=== PATIENT | female | born 1965 | race African-American/Black ===

== ENCOUNTER 2016-05-31 13:04 | Inpatient (IN) | payer BC ==
[2016-05-31 13:31] VITALS: BMI 28.1
[2016-05-31] MEDS ORDERED: LOPERAMIDE HCL 2 MG CAPSULE PO PRN (14:29)
[2016-05-31] MEDS ORDERED: IBUPROFEN 400 MG TABLET (FP) PO PRN (14:29)
[2016-05-31] MEDS ORDERED: MAGNESIUM CITRATE 300 ML BOTTLE PO PRN (14:29)
[2016-05-31] MEDS ORDERED: MAGNESIUM HYDROX 2400MG/30ML ORAL SUSPENSION 30 ML CUP PO PRN (14:29)
--- NOTE | 2016-05-31 14:29 | HP ---
[facility] Assess/Revision - Admission History Admitted to Rehab from: [facility] [place] - Vital signs Vital Signs: Vital Signs Period Temp Pulse Resp BP Sys/Galarza Pulse Ox Last 24 Hr 97.2 F 90 20 143/82 - Findings Detox History & Physical reviewed: Yes Concur with findings: Yes
[2016-05-31] MEDS ORDERED: ALBUTEROL SO4 6.7 GM HFA INHALER IH PRN (14:37)
[2016-05-31] MEDS: GABAPENTIN 400 MG CAPSULE (FP) PO SCH ×2 (17:05→21:40)
[2016-05-31] MEDS: guaiFENesin/D-METHORPHAN HB 10 ML UNIT-DOSE CUPS PO PRN (17:36)
[2016-05-31] MEDS: P-EPHED 60MG/TRIPROLIDI 2.5MG TABLET PO PRN (17:36)
[2016-05-31] MEDS: MENTHOL/PHENOL 1 EACH UD MM PRN (17:36)
[2016-05-31 20:16] LABS: URINE APPEARANCE CLEAR; URINE BLOOD NEGATIVE (NEGATIVE); URINE COLOR YELLOW; URINE GLUCOSE (UA) NEGATIVE (NEGATIVE); URINE KETONE NEGATIVE (NEGATIVE); URINE LEUK ESTERASE NEGATIVE (NEGATIVE); URINE NITRITE NEGATIVE (NEGATIVE); URINE PROTEIN NEGATIVE (NEGATIVE); URINE UROBILINOGEN NEGATIVE E.U./dl (0.2-1.0)
[2016-05-31] MEDS: THIAMINE HCL 100 MG TABLET (FP) PO SCH (21:40)
[2016-05-31] MEDS: NAPROXEN 500 MG TABLET (FP) PO SCH (21:40)
[2016-06-01] MEDS: GABAPENTIN 400 MG CAPSULE (FP) PO SCH ×3 (06:26→21:24)
[2016-06-01] MEDS: MENTHOL/PHENOL 1 EACH UD MM PRN (06:28)
[2016-06-01] MEDS: P-EPHED 60MG/TRIPROLIDI 2.5MG TABLET PO PRN (06:28)
[2016-06-01] MEDS: guaiFENesin/D-METHORPHAN HB 10 ML UNIT-DOSE CUPS PO PRN (06:28)
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
[2016-06-01] MEDS: PRENATAL VITAMINS W/ FOLIC ACID TABLET (FP) PO SCH (10:13)
[2016-06-01] MEDS: NAPROXEN 500 MG TABLET (FP) PO SCH ×2 (10:13→21:24)
[2016-06-01] MEDS: ASPIRIN 81 MG CHEWABLE TABLETS PO SCH (10:13)
[2016-06-01 10:56] LABS: HIV 1 & 2 AB NEGATIVE; HIV 1 AGp24 NEGATIVE
--- NOTE | 2016-06-01 12:39 | PN ---
[facility] Progress Note Note: ambulate with cane at home secondary to scoliosis order placed.
[2016-06-01] MEDS: DULoxetine HCL 30 MG CAPSULE.DR (FP) PO SCH (14:38)
[2016-06-01] MEDS: THIAMINE HCL 100 MG TABLET (FP) PO SCH (21:24)
[2016-06-01] MEDS: QUEtiapine FUMARATE 200 MG TABLET PO SCH (23:32)
[2016-06-02] MEDS: hydrOXYzine PAMOATE 50 MG CAPSULE (FP) PO PRN (03:07)
[2016-06-02] MEDS: GABAPENTIN 400 MG CAPSULE (FP) PO SCH ×3 (05:53→21:33)
[2016-06-02] MEDS: MAG HYDROX/AL HYDROX/SIMETH 30 ML UNIT-DOSE CUP PO PRN (05:53)
[2016-06-02] MEDS: guaiFENesin/D-METHORPHAN HB 10 ML UNIT-DOSE CUPS PO PRN (05:54)
[2016-06-02] MEDS: PRENATAL VITAMINS W/ FOLIC ACID TABLET (FP) PO SCH (10:08)
[2016-06-02] MEDS: DULoxetine HCL 30 MG CAPSULE.DR (FP) PO SCH (10:08)
[2016-06-02] MEDS: NAPROXEN 500 MG TABLET (FP) PO SCH ×2 (10:08→21:33)
[2016-06-02] MEDS: ASPIRIN 81 MG CHEWABLE TABLETS PO SCH (10:08)
--- NOTE | 2016-06-02 10:33 | EKG ---
Test Reason : Blood Pressure : / mmHG Vent. Rate : 090 BPM Atrial Rate : 090 BPM P-R Int : 162 ms QRS Dur : 066 ms QT Int : 370 ms P-R-T Axes : 062 022 036 degrees QTc Int : 452 ms NORMAL SINUS RHYTHM ANTERIOR INFARCT , AGE UNDETERMINED ABNORMAL ECG NO PREVIOUS ECGS AVAILABLE Confirmed by BETTINA CHAMPION, RODRIGUEZ ([id number]) on 06/02/2016 10:33:44 AM Referred By: Confirmed By:RODRIGUEZ DUNBAR MD
--- NOTE | 2016-06-02 19:00 | PN ---
[facility] Progress Note Note: patient reach out for object while sitting on the chair,fell and laded on right hip and back, no head injury no loc no obvious injury noted history of scoliosis and chronic low back pain ambulate with cane impression history of fall bp 131/79,p82,r20,t98F patient refused treatment and evaluation in er,signed refusal form, initiate fall protocol 2 fall precaution
[2016-06-02] MEDS: THIAMINE HCL 100 MG TABLET (FP) PO SCH (21:33)
[2016-06-02] MEDS: QUEtiapine FUMARATE 200 MG TABLET PO SCH (21:33)
[2016-06-03] MEDS: GABAPENTIN 400 MG CAPSULE (FP) PO SCH ×3 (06:10→21:27)
[2016-06-03] MEDS: DULoxetine HCL 30 MG CAPSULE.DR (FP) PO SCH (09:58)
[2016-06-03] MEDS: PRENATAL VITAMINS W/ FOLIC ACID TABLET (FP) PO SCH (09:58)
[2016-06-03] MEDS: NAPROXEN 500 MG TABLET (FP) PO SCH ×2 (09:58→21:27)
[2016-06-03] MEDS: ASPIRIN 81 MG CHEWABLE TABLETS PO SCH (09:58)
[2016-06-03] MEDS: hydrOXYzine PAMOATE 50 MG CAPSULE (FP) PO PRN (09:59)
[2016-06-03] MEDS: guaiFENesin/D-METHORPHAN HB 10 ML UNIT-DOSE CUPS PO PRN ×2 (09:59→21:29)
[2016-06-03] MEDS: QUEtiapine FUMARATE 200 MG TABLET PO SCH (21:27)
[2016-06-03] MEDS: THIAMINE HCL 100 MG TABLET (FP) PO SCH (21:27)
[2016-06-04] MEDS: GABAPENTIN 400 MG CAPSULE (FP) PO SCH ×3 (06:12→21:02)
[2016-06-04] MEDS: hydrOXYzine PAMOATE 50 MG CAPSULE (FP) PO PRN ×2 (07:25→17:35)
[2016-06-04] MEDS: PRENATAL VITAMINS W/ FOLIC ACID TABLET (FP) PO SCH (09:52)
[2016-06-04] MEDS: DULoxetine HCL 30 MG CAPSULE.DR (FP) PO SCH (09:52)
[2016-06-04] MEDS: NAPROXEN 500 MG TABLET (FP) PO SCH ×2 (09:52→21:02)
[2016-06-04] MEDS: ASPIRIN 81 MG CHEWABLE TABLETS PO SCH (09:53)
[2016-06-04] MEDS: guaiFENesin/D-METHORPHAN HB 10 ML UNIT-DOSE CUPS PO PRN ×2 (09:54→17:35)
[2016-06-04] MEDS: MAG HYDROX/AL HYDROX/SIMETH 30 ML UNIT-DOSE CUP PO PRN (14:26)
[2016-06-04] MEDS: THIAMINE HCL 100 MG TABLET (FP) PO SCH (21:02)
[2016-06-04] MEDS: QUEtiapine FUMARATE 200 MG TABLET PO SCH (21:02)
[2016-06-05] MEDS: hydrOXYzine PAMOATE 50 MG CAPSULE (FP) PO PRN ×4 (00:31→21:48)
[2016-06-05] MEDS: GABAPENTIN 400 MG CAPSULE (FP) PO SCH ×3 (06:08→21:46)
[2016-06-05] MEDS: MENTHOL/PHENOL 1 EACH UD MM PRN ×3 (06:09→21:47)
[2016-06-05] MEDS: guaiFENesin/D-METHORPHAN HB 10 ML UNIT-DOSE CUPS PO PRN (06:10)
[2016-06-05] MEDS: DULoxetine HCL 30 MG CAPSULE.DR (FP) PO SCH (09:51)
[2016-06-05] MEDS: PRENATAL VITAMINS W/ FOLIC ACID TABLET (FP) PO SCH (09:51)
[2016-06-05] MEDS: ASPIRIN 81 MG CHEWABLE TABLETS PO SCH (09:51)
[2016-06-05] MEDS: NAPROXEN 500 MG TABLET (FP) PO SCH ×2 (09:51→21:46)
--- NOTE | 2016-06-05 11:43 | PN ---
Psychiatric Progress Note Vital Signs: Vital Signs Period Temp Pulse Resp BP Sys/Galarza Pulse Ox Last 24 Hr 97.9 F-98.4 F 101-122 18-20 114-137/71-76 Date of Session: 06/05/16 Chief Complaint:: Anxiety HPI: Patient addressing Alcohol, Cocaine Dependence comorbid with Bipolar II Disorder and Posttraumatic Stress Disorder ROS: Anemia, Asthma, HTN, Pseudoseizure, VT, Scoliosis/LBP Current Medications: Active Medications Generic Name Dose Route Start Last Admin Trade Name Freq PRN Reason Stop Dose Admin Acetaminophen 650 mg 05/31/16 14:29 Tylenol - PO Q4H PRN PAIN Al Hydroxide/Mg Hydroxide 30 ml 05/31/16 14:29 06/04/16 14:26 Mylanta Oral Suspension - PO 30 ml Q6H PRN Administration DYSPEPSIA Albuterol Sulfate 2 puff 05/31/16 14:37 Ventolin Hfa Inhaler - IH Q4H PRN SHORT OF BREATH/WHEEZING Aspirin 81 mg 06/01/16 10:00 06/05/16 09:51 Asa - PO 81 mg DAILY LOUISE Administration Diltiazem HCl 120 mg 06/01/16 10:00 06/05/16 09:51 Cardizem Cd - PO 120 mg DAILY LOUISE Administration Diphenhydramine HCl 50 mg 05/31/16 14:29 Benadryl - PO HSMR1 PRN INSOMNIA Duloxetine HCl 30 mg 06/01/16 10:30 06/05/16 09:51 Cymbalta - PO 30 mg DAILY LOUISE Administration Eucalyptus/Menthol/Phenol/Sorbitol 1 each 05/31/16 14:29 06/05/16 09:52 Cepastat Lozenge - MM 1 each Q4H PRN Administration SORE THROAT Gabapentin 400 mg 05/31/16 16:30 06/05/16 06:08 Neurontin - PO 400 mg TID LOUISE Administration Guaifenesin 10 ml 05/31/16 14:29 06/05/16 06:10 Robitussin Dm - PO 10 ml Q6H PRN Administration COUGH Hydroxyzine Pamoate 50 mg 05/31/16 14:29 06/05/16 09:54 Vistaril - PO 50 mg Q4H PRN Administration AGITATION Loperamide HCl 4 mg 05/31/16 14:29 Imodium - PO Q6H PRN DIARRHEA Magnesium Citrate 300 ml 05/31/16 14:29 Citroma - PO Q48H PRN CONSTIPATION Magnesium Hydroxide 30 ml 05/31/16 14:29 Milk Of Magnesia - PO DAILY PRN CONSTIPATION Naproxen 500 mg 05/31/16 22:00 06/05/16 09:51 Naprosyn - PO 500 mg BID LOUISE Administration Multivit/Folic Acid/Iron 1 tab 06/01/16 10:00 06/05/16 09:51 Vitamins (Sjr) - PO 1 tab DAILY LOUISE Administration Pseudoephedrine/Triprolidine 1 combo 05/31/16 14:29 06/01/16 06:28 Actifed - PO 1 combo TID PRN Administration NASAL CONGESTION Quetiapine Fumarate 200 mg 06/01/16 22:00 06/04/16 21:02 Seroquel - PO 200 mg HS LOUISE Administration Thiamine HCl 100 mg 05/31/16 22:00 06/04/16 21:02 Vitamin B1 - PO 100 mg HS LOUISE Administration Medication(s) Change(s): Start Seroquel 25 mg po Q 6hrs prn for anxiety Current Side Effect: No Lab tests ordered: No Lab tests reviewed: Yes Provider note:: Patient reports that she has been feeling anxious. She attributes her anxiety to anticipation of one of her children's birthday tomorrow and difficulty to call her. She is currently on Seroquel 200 mg po HS and Vistaril 50 mg poQ 4hrs prn. Discussed adding Seroquel 25 mg po Q 6hrs prn to current regimen to alleviate anxiety symptoms Total face to face time:: 25 Mental Status Exam - Mental Status Exam Alert and Oriented to: Time, Place, Person Cognitive Function: Fair Patient Appearance: Well Groomed Mood: Anxious Affect: Appropriate Patient Behavior: Cooperative Speech Pattern: Clear Voice Loudness: Normal Thought Process: Intact Thought Disorder: Not Present Hallucinations: Denies Suicidal Ideation: Denies Homicidal Ideation: Denies Insight/Judgement: Fair Sleep: Fair Appetite: Good Muscle strength/Tone: Rigidity Gait/Station: Normal Psychiatric Treatment Plan - Problem List (1) Alcohol dependence with uncomplicated withdrawal Current Visit: No (2) Cocaine dependence Current Visit: No (3) PTSD (post-traumatic stress disorder) Current Visit: Yes (4) Bipolar II disorder Current Visit: Yes (5) Myocardial infarction Current Visit: Yes (6) Pseudoseizures Current Visit: Yes (7) Anemia Current Visit: No (8) Asthma Current Visit: No (9) Essential hypertension Current Visit: No (10) Low back pain Current Visit: No (11) Scoliosis Current Visit: No Initial treatment plan: Start Seroquel 25 mg po Q 6hrs prn for anxiety
[2016-06-05] MEDS ORDERED: QUEtiapine FUMARATE 25 MG TABLET (FP) PO PRN (11:48)
[2016-06-05] MEDS: THIAMINE HCL 100 MG TABLET (FP) PO SCH (21:46)
[2016-06-05] MEDS: QUEtiapine FUMARATE 200 MG TABLET PO SCH (21:46)
[2016-06-06] MEDS: GABAPENTIN 400 MG CAPSULE (FP) PO SCH ×3 (05:50→21:33)
[2016-06-06] MEDS: hydrOXYzine PAMOATE 50 MG CAPSULE (FP) PO PRN ×2 (05:51→14:08)
[2016-06-06] MEDS: guaiFENesin/D-METHORPHAN HB 10 ML UNIT-DOSE CUPS PO PRN ×2 (05:51→14:08)
[2016-06-06] MEDS: PRENATAL VITAMINS W/ FOLIC ACID TABLET (FP) PO SCH (09:39)
[2016-06-06] MEDS: NAPROXEN 500 MG TABLET (FP) PO SCH ×2 (09:39→21:33)
[2016-06-06] MEDS: DULoxetine HCL 30 MG CAPSULE.DR (FP) PO SCH (09:39)
[2016-06-06] MEDS: ASPIRIN 81 MG CHEWABLE TABLETS PO SCH (09:39)
[2016-06-06] MEDS: MENTHOL/PHENOL 1 EACH UD MM PRN ×2 (09:44→14:09)
[2016-06-06] MEDS: THIAMINE HCL 100 MG TABLET (FP) PO SCH (21:32)
[2016-06-06] MEDS: QUEtiapine FUMARATE 200 MG TABLET PO SCH (21:33)
[2016-06-06] MEDS: diphenhydrAMINE HCL 50 MG CAPSULE PO PRN (21:33)
[2016-06-07] MEDS: GABAPENTIN 400 MG CAPSULE (FP) PO SCH ×3 (05:44→21:52)
[2016-06-07] MEDS: guaiFENesin/D-METHORPHAN HB 10 ML UNIT-DOSE CUPS PO PRN (05:45)
[2016-06-07] MEDS: CYCLOBENZAPRINE HCL 10 MG TABLET (FP) PO PRN (05:46)
[2016-06-07] MEDS: MENTHOL/PHENOL 1 EACH UD MM PRN ×2 (05:46→10:09)
[2016-06-07] MEDS: PRENATAL VITAMINS W/ FOLIC ACID TABLET (FP) PO SCH (10:06)
[2016-06-07] MEDS: NAPROXEN 500 MG TABLET (FP) PO SCH ×2 (10:07→21:52)
[2016-06-07] MEDS: ASPIRIN 81 MG CHEWABLE TABLETS PO SCH (10:07)
[2016-06-07] MEDS: DULoxetine HCL 30 MG CAPSULE.DR (FP) PO SCH (10:07)
[2016-06-07] MEDS: hydrOXYzine PAMOATE 50 MG CAPSULE (FP) PO PRN ×2 (13:33→22:03)
[2016-06-07] MEDS: AMOX TR/POT CLAV 875MG/125MG TABLETS (FP) PO SCH (17:47)
[2016-06-07] MEDS: QUEtiapine FUMARATE 200 MG TABLET PO SCH (21:51)
[2016-06-07] MEDS: THIAMINE HCL 100 MG TABLET (FP) PO SCH (21:51)
[2016-06-07] MEDS: diphenhydrAMINE HCL 50 MG CAPSULE PO PRN (22:04)
[2016-06-08] MEDS: GABAPENTIN 400 MG CAPSULE (FP) PO SCH ×3 (06:25→21:55)
[2016-06-08] MEDS: hydrOXYzine PAMOATE 50 MG CAPSULE (FP) PO PRN ×2 (06:26→10:10)
[2016-06-08] MEDS: AMOX TR/POT CLAV 875MG/125MG TABLETS (FP) PO SCH ×2 (07:49→17:04)
[2016-06-08] MEDS: DULoxetine HCL 30 MG CAPSULE.DR (FP) PO SCH (10:07)
[2016-06-08] MEDS: NAPROXEN 500 MG TABLET (FP) PO SCH ×2 (10:07→21:55)
[2016-06-08] MEDS: PRENATAL VITAMINS W/ FOLIC ACID TABLET (FP) PO SCH (10:07)
[2016-06-08] MEDS: ASPIRIN 81 MG CHEWABLE TABLETS PO SCH (10:07)
[2016-06-08] MEDS: FLUTICASONE PROP 0.05% 16 GM NASAL SPRAY NS SCH (10:08)
[2016-06-08] MEDS: guaiFENesin/D-METHORPHAN HB 10 ML UNIT-DOSE CUPS PO PRN (10:09)
[2016-06-08] MEDS: CYCLOBENZAPRINE HCL 10 MG TABLET (FP) PO PRN (10:20)
[2016-06-08] MEDS: QUEtiapine FUMARATE 200 MG TABLET PO SCH (21:55)
[2016-06-08] MEDS: THIAMINE HCL 100 MG TABLET (FP) PO SCH (21:55)
[2016-06-09] MEDS: GABAPENTIN 400 MG CAPSULE (FP) PO SCH ×3 (06:17→21:23)
[2016-06-09] MEDS: hydrOXYzine PAMOATE 50 MG CAPSULE (FP) PO PRN ×2 (06:18→14:59)
[2016-06-09] MEDS: AMOX TR/POT CLAV 875MG/125MG TABLETS (FP) PO SCH ×2 (07:02→17:44)
[2016-06-09] MEDS: DULoxetine HCL 30 MG CAPSULE.DR (FP) PO SCH (09:51)
[2016-06-09] MEDS: ASPIRIN 81 MG CHEWABLE TABLETS PO SCH (09:51)
[2016-06-09] MEDS: FLUTICASONE PROP 0.05% 16 GM NASAL SPRAY NS SCH (09:51)
[2016-06-09] MEDS: PRENATAL VITAMINS W/ FOLIC ACID TABLET (FP) PO SCH (09:51)
[2016-06-09] MEDS: NAPROXEN 500 MG TABLET (FP) PO SCH ×2 (09:51→21:23)
[2016-06-09] MEDS: CYCLOBENZAPRINE HCL 10 MG TABLET (FP) PO PRN (09:55)
[2016-06-09] MEDS: guaiFENesin/D-METHORPHAN HB 10 ML UNIT-DOSE CUPS PO PRN (09:57)
[2016-06-09] MEDS: THIAMINE HCL 100 MG TABLET (FP) PO SCH (21:23)
[2016-06-09] MEDS: QUEtiapine FUMARATE 200 MG TABLET PO SCH (21:23)
[2016-06-10] MEDS: GABAPENTIN 400 MG CAPSULE (FP) PO SCH ×3 (05:29→21:24)
[2016-06-10] MEDS: hydrOXYzine PAMOATE 50 MG CAPSULE (FP) PO PRN ×2 (05:30→21:24)
[2016-06-10] MEDS: AMOX TR/POT CLAV 875MG/125MG TABLETS (FP) PO SCH ×2 (07:07→17:35)
[2016-06-10] MEDS: ASPIRIN 81 MG CHEWABLE TABLETS PO SCH (09:01)
[2016-06-10] MEDS: CYCLOBENZAPRINE HCL 10 MG TABLET (FP) PO PRN (09:01)
[2016-06-10] MEDS: FLUTICASONE PROP 0.05% 16 GM NASAL SPRAY NS SCH (09:01)
[2016-06-10] MEDS: NAPROXEN 500 MG TABLET (FP) PO SCH ×2 (09:01→21:24)
[2016-06-10] MEDS: PRENATAL VITAMINS W/ FOLIC ACID TABLET (FP) PO SCH (09:01)
[2016-06-10] MEDS: DULoxetine HCL 30 MG CAPSULE.DR (FP) PO SCH (09:02)
[2016-06-10] MEDS: guaiFENesin/D-METHORPHAN HB 10 ML UNIT-DOSE CUPS PO PRN (09:04)
[2016-06-10] MEDS: LIDOCAINE 5% TOPICAL PATCH TP SCH (13:31)
[2016-06-10] MEDS: QUEtiapine FUMARATE 200 MG TABLET PO SCH (21:24)
[2016-06-10] MEDS: THIAMINE HCL 100 MG TABLET (FP) PO SCH (21:24)
[2016-06-11] MEDS: GABAPENTIN 400 MG CAPSULE (FP) PO SCH ×3 (05:52→21:45)
[2016-06-11] MEDS: hydrOXYzine PAMOATE 50 MG CAPSULE (FP) PO PRN (05:52)
[2016-06-11] MEDS: guaiFENesin/D-METHORPHAN HB 10 ML UNIT-DOSE CUPS PO PRN (05:53)
[2016-06-11] MEDS: AMOX TR/POT CLAV 875MG/125MG TABLETS (FP) PO SCH ×2 (07:06→17:08)
[2016-06-11] MEDS: NAPROXEN 500 MG TABLET (FP) PO SCH ×2 (09:55→21:45)
[2016-06-11] MEDS: ASPIRIN 81 MG CHEWABLE TABLETS PO SCH (09:55)
[2016-06-11] MEDS: FLUTICASONE PROP 0.05% 16 GM NASAL SPRAY NS SCH (09:55)
[2016-06-11] MEDS: DULoxetine HCL 30 MG CAPSULE.DR (FP) PO SCH (09:56)
[2016-06-11] MEDS: PRENATAL VITAMINS W/ FOLIC ACID TABLET (FP) PO SCH (09:56)
[2016-06-11] MEDS: CYCLOBENZAPRINE HCL 10 MG TABLET (FP) PO PRN (09:57)
[2016-06-11] MEDS: LIDOCAINE 5% TOPICAL PATCH TP SCH (10:51)
[2016-06-11] MEDS: THIAMINE HCL 100 MG TABLET (FP) PO SCH (21:45)
[2016-06-11] MEDS: QUEtiapine FUMARATE 200 MG TABLET PO SCH (21:45)
[2016-06-12] MEDS: GABAPENTIN 400 MG CAPSULE (FP) PO SCH ×3 (05:37→21:10)
[2016-06-12] MEDS: CYCLOBENZAPRINE HCL 10 MG TABLET (FP) PO PRN (05:37)
[2016-06-12] MEDS: AMOX TR/POT CLAV 875MG/125MG TABLETS (FP) PO SCH ×2 (07:03→16:48)
[2016-06-12] MEDS: ASPIRIN 81 MG CHEWABLE TABLETS PO SCH (09:58)
[2016-06-12] MEDS: FLUTICASONE PROP 0.05% 16 GM NASAL SPRAY NS SCH (09:58)
[2016-06-12] MEDS: PRENATAL VITAMINS W/ FOLIC ACID TABLET (FP) PO SCH (09:58)
[2016-06-12] MEDS: DULoxetine HCL 30 MG CAPSULE.DR (FP) PO SCH (09:58)
[2016-06-12] MEDS: NAPROXEN 500 MG TABLET (FP) PO SCH ×2 (09:58→21:10)
[2016-06-12] MEDS: LIDOCAINE 5% TOPICAL PATCH TP SCH (10:00)
--- NOTE | 2016-06-12 11:35 | PN ---
Psychiatric Progress Note Vital Signs: Vital Signs Period Temp Pulse Resp BP Sys/Galarza Pulse Ox Last 24 Hr 98.3 F 108 20 136/86 Date of Session: 06/12/16 Chief Complaint:: "I don't want to continue taking Cymbalta" HPI: Patient addressing Alcohol and Cocaine Dependence comorbid with Bipolar II Disorder and Posttraumatic Stress Disorder. ROS: Anemia, Asthma, HTN, Pseudoseizure, MD, Scoliosis/LBP Current Medications: Active Medications Generic Name Dose Route Start Last Admin Trade Name Freq PRN Reason Stop Dose Admin Acetaminophen 650 mg 05/31/16 14:29 Tylenol - PO Q4H PRN PAIN Al Hydroxide/Mg Hydroxide 30 ml 05/31/16 14:29 06/04/16 14:26 Mylanta Oral Suspension - PO 30 ml Q6H PRN Administration DYSPEPSIA Albuterol Sulfate 2 puff 05/31/16 14:37 Ventolin Hfa Inhaler - IH Q4H PRN SHORT OF BREATH/WHEEZING Amoxicillin/Clavulanate Potassium 1 tab 06/07/16 17:30 06/12/16 07:03 Augmentin - 875mg Tablet PO 1 tab BID@0800,1730 LOUISE Administration Aspirin 81 mg 06/01/16 10:00 06/12/16 09:58 Asa - PO 81 mg DAILY LOUISE Administration Cyclobenzaprine HCl 10 mg 06/06/16 14:46 06/12/16 05:37 Flexeril - PO 10 mg TID PRN Administration MUSCLE SPASMS Diltiazem HCl 120 mg 06/01/16 10:00 06/12/16 09:59 Cardizem Cd - PO 120 mg DAILY LOUISE Administration Diphenhydramine HCl 50 mg 05/31/16 14:29 06/07/16 22:04 Benadryl - PO 50 mg HSMR1 PRN Administration INSOMNIA Duloxetine HCl 30 mg 06/01/16 10:30 06/12/16 09:58 Cymbalta - PO 30 mg DAILY LOUISE Administration Eucalyptus/Menthol/Phenol/Sorbitol 1 each 05/31/16 14:29 06/07/16 10:09 Cepastat Lozenge - MM 1 each Q4H PRN Administration SORE THROAT Fluticasone Propionate 1 spray 06/08/16 10:00 06/12/16 09:58 Flonase - NS 1 spray DAILY LOUISE Administration Gabapentin 400 mg 05/31/16 16:30 06/12/16 05:37 Neurontin - PO 400 mg TID LOUISE Administration Guaifenesin 10 ml 05/31/16 14:29 06/11/16 05:53 Robitussin Dm - PO 10 ml Q6H PRN Administration COUGH Hydroxyzine Pamoate 50 mg 05/31/16 14:29 06/11/16 05:52 Vistaril - PO 50 mg Q4H PRN Administration AGITATION Lidocaine 1 patch 06/10/16 11:45 06/12/16 10:00 Lidoderm Patch - TP 1 patch DAILY LOUISE Administration Loperamide HCl 4 mg 05/31/16 14:29 Imodium - PO Q6H PRN DIARRHEA Magnesium Citrate 300 ml 05/31/16 14:29 Citroma - PO Q48H PRN CONSTIPATION Magnesium Hydroxide 30 ml 05/31/16 14:29 Milk Of Magnesia - PO DAILY PRN CONSTIPATION Naproxen 500 mg 05/31/16 22:00 06/12/16 09:58 Naprosyn - PO 500 mg BID LOUISE Administration Multivit/Folic Acid/Iron 1 tab 06/01/16 10:00 06/12/16 09:58 Vitamins (Sjr) - PO 1 tab DAILY LOUISE Administration Pseudoephedrine/Triprolidine 1 combo 05/31/16 14:29 06/01/16 06:28 Actifed - PO 1 combo TID PRN Administration NASAL CONGESTION Quetiapine Fumarate 200 mg 06/01/16 22:00 06/11/16 21:45 Seroquel - PO 200 mg HS LOUISE Administration Quetiapine Fumarate 25 mg 06/05/16 11:48 Seroquel - PO Q6H PRN ANXIETY Thiamine HCl 100 mg 05/31/16 22:00 06/11/16 21:45 Vitamin B1 - PO 100 mg HS LOUISE Administration Medication(s) Change(s): Discontinue Cymbalta Current Side Effect: No Lab tests ordered: Yes Lab tests reviewed: Yes Provider note:: Patient requests that Cymbalta be discontinued. She said that she was prescribed it mostly for pain and for depression as well. She claims that it is not helping at all for pain and she is not depressed. When told by promotion writer that she is not depressed probably because she is taking it, she said that she was not depressed prior to being on it that it was prescribed as relief for her pain Total face to face time:: 25 Mental Status Exam - Mental Status Exam Alert and Oriented to: Time, Place, Person Cognitive Function: Fair Mood: Hopeful, Euthymic Affect: Appropriate Patient Behavior: Cooperative Speech Pattern: Clear Voice Loudness: Normal Thought Process: Intact Thought Disorder: Not Present Hallucinations: Denies Suicidal Ideation: Denies Insight/Judgement: Fair Sleep: Fair Appetite: Good Muscle strength/Tone: Normal Gait/Station: Normal Psychiatric Treatment Plan - Problem List (1) Alcohol dependence with uncomplicated withdrawal Current Visit: No (2) Cocaine dependence Current Visit: No (3) PTSD (post-traumatic stress disorder) Current Visit: Yes (4) Bipolar II disorder Current Visit: Yes (5) Myocardial infarction Current Visit: Yes (6) Pseudoseizures Current Visit: Yes (7) Anemia Current Visit: No (8) Asthma Current Visit: No (9) Essential hypertension Current Visit: No (10) Low back pain Current Visit: No (11) Scoliosis Current Visit: No Initial treatment plan: 1) Discontinue Cymbalta. 2) Monitor progress
[2016-06-12] MEDS: QUEtiapine FUMARATE 200 MG TABLET PO SCH (21:10)
[2016-06-12] MEDS: METHYL SALICYLATE/MENTHOL OINT 30 GM TUBE TP SCH (21:10)
[2016-06-12] MEDS: THIAMINE HCL 100 MG TABLET (FP) PO SCH (21:10)
[2016-06-12] MEDS: diphenhydrAMINE HCL 50 MG CAPSULE PO PRN (21:10)
[2016-06-13] MEDS: GABAPENTIN 400 MG CAPSULE (FP) PO SCH ×3 (05:48→21:07)
[2016-06-13] MEDS: CYCLOBENZAPRINE HCL 10 MG TABLET (FP) PO PRN ×2 (05:50→21:07)
[2016-06-13] MEDS: ACETAMINOPHEN 325 MG TABLET (FP) PO PRN ×2 (05:50→17:28)
[2016-06-13] MEDS: AMOX TR/POT CLAV 875MG/125MG TABLETS (FP) PO SCH ×2 (07:18→17:28)
[2016-06-13] MEDS: PRENATAL VITAMINS W/ FOLIC ACID TABLET (FP) PO SCH (10:08)
[2016-06-13] MEDS: ASPIRIN 81 MG CHEWABLE TABLETS PO SCH (10:08)
[2016-06-13] MEDS: LIDOCAINE 5% TOPICAL PATCH TP SCH (10:08)
[2016-06-13] MEDS: NAPROXEN 500 MG TABLET (FP) PO SCH ×2 (10:08→21:07)
[2016-06-13] MEDS: DULoxetine HCL 30 MG CAPSULE.DR (FP) PO SCH (10:08)
[2016-06-13] MEDS: FLUTICASONE PROP 0.05% 16 GM NASAL SPRAY NS SCH (10:09)
[2016-06-13] MEDS: METHYL SALICYLATE/MENTHOL OINT 30 GM TUBE TP SCH ×2 (10:09→21:07)
[2016-06-13] MEDS: hydrOXYzine PAMOATE 50 MG CAPSULE (FP) PO PRN ×2 (10:10→14:08)
[2016-06-13] MEDS: THIAMINE HCL 100 MG TABLET (FP) PO SCH (21:06)
[2016-06-13] MEDS: diphenhydrAMINE HCL 50 MG CAPSULE PO PRN (21:06)
[2016-06-13] MEDS: QUEtiapine FUMARATE 200 MG TABLET PO SCH (21:07)
[2016-06-14] MEDS: GABAPENTIN 400 MG CAPSULE (FP) PO SCH ×3 (06:34→21:17)
[2016-06-14] MEDS: hydrOXYzine PAMOATE 50 MG CAPSULE (FP) PO PRN ×2 (06:34→14:51)
[2016-06-14] MEDS: guaiFENesin/D-METHORPHAN HB 10 ML UNIT-DOSE CUPS PO PRN ×3 (06:36→21:17)
[2016-06-14] MEDS: AMOX TR/POT CLAV 875MG/125MG TABLETS (FP) PO SCH ×2 (07:00→17:09)
[2016-06-14] MEDS: NAPROXEN 500 MG TABLET (FP) PO SCH ×2 (09:51→21:17)
[2016-06-14] MEDS: LIDOCAINE 5% TOPICAL PATCH TP SCH (09:51)
[2016-06-14] MEDS: ASPIRIN 81 MG CHEWABLE TABLETS PO SCH (09:51)
[2016-06-14] MEDS: PRENATAL VITAMINS W/ FOLIC ACID TABLET (FP) PO SCH (09:51)
[2016-06-14] MEDS: FLUTICASONE PROP 0.05% 16 GM NASAL SPRAY NS SCH (09:51)
[2016-06-14] MEDS: METHYL SALICYLATE/MENTHOL OINT 30 GM TUBE TP SCH ×2 (09:52→21:17)
[2016-06-14] MEDS: DULoxetine HCL 30 MG CAPSULE.DR (FP) PO SCH (09:52)
[2016-06-14] MEDS: ACETAMINOPHEN 325 MG TABLET (FP) PO PRN (14:51)
[2016-06-14] MEDS: CYCLOBENZAPRINE HCL 10 MG TABLET (FP) PO PRN (17:11)
[2016-06-14] MEDS: THIAMINE HCL 100 MG TABLET (FP) PO SCH (21:17)
[2016-06-14] MEDS: diphenhydrAMINE HCL 50 MG CAPSULE PO PRN (21:17)
[2016-06-14] MEDS: QUEtiapine FUMARATE 200 MG TABLET PO SCH (21:18)
[2016-06-15] MEDS: GABAPENTIN 400 MG CAPSULE (FP) PO SCH ×3 (06:17→22:09)
[2016-06-15] MEDS: guaiFENesin/D-METHORPHAN HB 10 ML UNIT-DOSE CUPS PO PRN ×2 (06:18→17:02)
[2016-06-15] MEDS: hydrOXYzine PAMOATE 50 MG CAPSULE (FP) PO PRN (10:05)
[2016-06-15] MEDS: NAPROXEN 500 MG TABLET (FP) PO SCH ×2 (10:05→22:09)
[2016-06-15] MEDS: ASPIRIN 81 MG CHEWABLE TABLETS PO SCH (10:05)
[2016-06-15] MEDS: DULoxetine HCL 30 MG CAPSULE.DR (FP) PO SCH (10:05)
[2016-06-15] MEDS: PRENATAL VITAMINS W/ FOLIC ACID TABLET (FP) PO SCH (10:05)
[2016-06-15] MEDS: LIDOCAINE 5% TOPICAL PATCH TP SCH (10:06)
[2016-06-15] MEDS: FLUTICASONE PROP 0.05% 16 GM NASAL SPRAY NS SCH (10:06)
[2016-06-15] MEDS: METHYL SALICYLATE/MENTHOL OINT 30 GM TUBE TP SCH ×2 (10:08→22:10)
[2016-06-15] MEDS: CYCLOBENZAPRINE HCL 10 MG TABLET (FP) PO PRN (14:08)
[2016-06-15] MEDS: THIAMINE HCL 100 MG TABLET (FP) PO SCH (22:09)
[2016-06-15] MEDS: diphenhydrAMINE HCL 50 MG CAPSULE PO PRN (22:09)
[2016-06-15] MEDS: QUEtiapine FUMARATE 200 MG TABLET PO SCH (22:09)
[2016-06-16] MEDS: GABAPENTIN 400 MG CAPSULE (FP) PO SCH ×3 (06:45→21:20)
[2016-06-16] MEDS: CYCLOBENZAPRINE HCL 10 MG TABLET (FP) PO PRN ×2 (07:54→14:03)
[2016-06-16] MEDS: ASPIRIN 81 MG CHEWABLE TABLETS PO SCH (10:00)
[2016-06-16] MEDS: NAPROXEN 500 MG TABLET (FP) PO SCH ×2 (10:00→21:20)
[2016-06-16] MEDS: PRENATAL VITAMINS W/ FOLIC ACID TABLET (FP) PO SCH (10:00)
[2016-06-16] MEDS: LIDOCAINE 5% TOPICAL PATCH TP SCH (10:01)
[2016-06-16] MEDS: FLUTICASONE PROP 0.05% 16 GM NASAL SPRAY NS SCH (10:02)
[2016-06-16] MEDS: DULoxetine HCL 30 MG CAPSULE.DR (FP) PO SCH (10:02)
[2016-06-16] MEDS: METHYL SALICYLATE/MENTHOL OINT 30 GM TUBE TP SCH ×2 (10:03→21:21)
[2016-06-16] MEDS: QUEtiapine FUMARATE 200 MG TABLET PO SCH (21:20)
[2016-06-16] MEDS: diphenhydrAMINE HCL 50 MG CAPSULE PO PRN (21:20)
[2016-06-16] MEDS: THIAMINE HCL 100 MG TABLET (FP) PO SCH (21:20)
[2016-06-17] MEDS: GABAPENTIN 400 MG CAPSULE (FP) PO SCH ×3 (05:54→21:10)
[2016-06-17] MEDS: ACETAMINOPHEN 325 MG TABLET (FP) PO PRN (05:55)
[2016-06-17] MEDS: CYCLOBENZAPRINE HCL 10 MG TABLET (FP) PO PRN (05:55)
[2016-06-17] MEDS: PRENATAL VITAMINS W/ FOLIC ACID TABLET (FP) PO SCH (10:00)
[2016-06-17] MEDS: ASPIRIN 81 MG CHEWABLE TABLETS PO SCH (10:00)
[2016-06-17] MEDS: LIDOCAINE 5% TOPICAL PATCH TP SCH (10:00)
[2016-06-17] MEDS: DULoxetine HCL 30 MG CAPSULE.DR (FP) PO SCH (10:00)
[2016-06-17] MEDS: NAPROXEN 500 MG TABLET (FP) PO SCH ×2 (10:00→21:08)
[2016-06-17] MEDS: METHYL SALICYLATE/MENTHOL OINT 30 GM TUBE TP SCH ×2 (10:00→21:09)
[2016-06-17] MEDS: FLUTICASONE PROP 0.05% 16 GM NASAL SPRAY NS SCH (10:00)
[2016-06-17] MEDS: THIAMINE HCL 100 MG TABLET (FP) PO SCH (21:08)
[2016-06-17] MEDS: QUEtiapine FUMARATE 200 MG TABLET PO SCH (21:08)
[2016-06-17] MEDS: diphenhydrAMINE HCL 50 MG CAPSULE PO PRN (21:09)
[2016-06-18] MEDS: hydrOXYzine PAMOATE 50 MG CAPSULE (FP) PO PRN (06:55)
[2016-06-18] MEDS: GABAPENTIN 400 MG CAPSULE (FP) PO SCH ×4 (06:55→21:36)
--- NOTE | 2016-06-18 07:59 | PN ---
Psychiatric Progress Note Vital Signs: Vital Signs Period Temp Pulse Resp BP Sys/Galarza Pulse Ox Last 24 Hr 97.4 F 90 16-18 159/80 Date of Session: 06/18/16 Chief Complaint:: Psychiatrist Discharge Note HPI: Patient addressing Alcohol and Cocaine Dependence comorbid with PTSD and Bipolar II Disorder ROS: Anemia, Asthma, HTN, Scoliosis/LBP were medically managed Current Medications: Active Medications Generic Name Dose Route Start Last Admin Trade Name Freq PRN Reason Stop Dose Admin Acetaminophen 650 mg 05/31/16 14:29 06/17/16 05:55 Tylenol - PO 650 mg Q4H PRN Administration PAIN Al Hydroxide/Mg Hydroxide 30 ml 05/31/16 14:29 06/04/16 14:26 Mylanta Oral Suspension - PO 30 ml Q6H PRN Administration DYSPEPSIA Albuterol Sulfate 2 puff 05/31/16 14:37 Ventolin Hfa Inhaler - IH Q4H PRN SHORT OF BREATH/WHEEZING Aspirin 81 mg 06/01/16 10:00 06/17/16 10:00 Asa - PO 81 mg DAILY LOUISE Administration Cyclobenzaprine HCl 10 mg 06/06/16 14:46 06/17/16 05:55 Flexeril - PO 10 mg TID PRN Administration MUSCLE SPASMS Diltiazem HCl 120 mg 06/01/16 10:00 06/17/16 10:00 Cardizem Cd - PO 120 mg DAILY LOUISE Administration Diphenhydramine HCl 50 mg 05/31/16 14:29 06/17/16 21:09 Benadryl - PO 50 mg HSMR1 PRN Administration INSOMNIA Duloxetine HCl 30 mg 06/01/16 10:30 06/17/16 10:00 Cymbalta - PO Not Given DAILY LOUISE Eucalyptus/Menthol/Phenol/Sorbitol 1 each 05/31/16 14:29 06/07/16 10:09 Cepastat Lozenge - MM 1 each Q4H PRN Administration SORE THROAT Fluticasone Propionate 1 spray 06/08/16 10:00 06/17/16 10:00 Flonase - NS 1 spray DAILY LOUISE Administration Gabapentin 400 mg 05/31/16 16:30 06/18/16 06:55 Neurontin - PO 400 mg TID LOUISE Administration Guaifenesin 10 ml 05/31/16 14:29 06/15/16 17:02 Robitussin Dm - PO 10 ml Q6H PRN Administration COUGH Hydroxyzine Pamoate 50 mg 05/31/16 14:29 06/18/16 06:55 Vistaril - PO 50 mg Q4H PRN Administration AGITATION Lidocaine 1 patch 06/10/16 11:45 06/17/16 10:00 Lidoderm Patch - TP 1 patch DAILY LOUISE Administration Loperamide HCl 4 mg 05/31/16 14:29 Imodium - PO Q6H PRN DIARRHEA Magnesium Citrate 300 ml 05/31/16 14:29 Citroma - PO Q48H PRN CONSTIPATION Magnesium Hydroxide 30 ml 05/31/16 14:29 Milk Of Magnesia - PO DAILY PRN CONSTIPATION Methyl Salicylate 1 applic 06/12/16 22:00 06/17/16 21:09 Antonio-Epstein - TP 1 applic BID LOUISE Administration Naproxen 500 mg 05/31/16 22:00 06/17/16 21:08 Naprosyn - PO 500 mg BID LOUISE Administration Multivit/Folic Acid/Iron 1 tab 06/01/16 10:00 06/17/16 10:00 Vitamins (Sjr) - PO 1 tab DAILY LOUISE Administration Pseudoephedrine/Triprolidine 1 combo 05/31/16 14:29 06/01/16 06:28 Actifed - PO 1 combo TID PRN Administration NASAL CONGESTION Quetiapine Fumarate 200 mg 06/01/16 22:00 06/17/16 21:08 Seroquel - PO 200 mg HS LOUISE Administration Quetiapine Fumarate 25 mg 06/05/16 11:48 Seroquel - PO Q6H PRN ANXIETY Thiamine HCl 100 mg 05/31/16 22:00 06/17/16 21:08 Vitamin B1 - PO 100 mg HS LOUISE Administration Current Side Effect: No Lab tests ordered: Yes Lab tests reviewed: Yes Provider note:: Patient will complete this program on 06/19/16. She has met her treatment goals and eun continue to address her issues in outpatient treatment at [facility]. She verbalized understanding of the negative consequences of her addiction and from her participation in this program, she has realized that she has to surround herself with positive people in order to maintain abstinent. She responded well to Seroquel 200 mg po HS. Script for 30days supply of that medication will be electronically transmitted to [facility] at [address] [place] [id number]. She is stable for discharge on 06/19/16 Total face to face time:: 35 Mental Status Exam - Mental Status Exam Alert and Oriented to: Time, Place, Person Cognitive Function: Fair Patient Appearance: Well Groomed Mood: Hopeful Patient Behavior: Cooperative Speech Pattern: Clear Voice Loudness: Normal Thought Process: Intact Thought Disorder: Not Present Hallucinations: Denies Suicidal Ideation: Denies, Past, Plan Insight/Judgement: Fair Sleep: Fair Appetite: Good Muscle strength/Tone: Normal Gait/Station: Normal Psychiatric Treatment Plan - Problem List (1) Alcohol dependence with uncomplicated withdrawal Current Visit: No (2) Cocaine dependence Current Visit: No (3) PTSD (post-traumatic stress disorder) Current Visit: Yes (4) Bipolar II disorder Current Visit: Yes (5) Myocardial infarction Current Visit: Yes (6) Pseudoseizures Current Visit: Yes (7) Anemia Current Visit: No (8) Asthma Current Visit: No (9) Essential hypertension Current Visit: No (10) Low back pain Current Visit: No (11) Scoliosis Current Visit: No Initial treatment plan: Patient will be discharged tomorrow and referred to [facility] for outpatient treatment
[2016-06-18] MEDS: NAPROXEN 500 MG TABLET (FP) PO SCH ×2 (10:32→21:36)
[2016-06-18] MEDS: ASPIRIN 81 MG CHEWABLE TABLETS PO SCH (10:32)
[2016-06-18] MEDS: LIDOCAINE 5% TOPICAL PATCH TP SCH (10:33)
[2016-06-18] MEDS: PRENATAL VITAMINS W/ FOLIC ACID TABLET (FP) PO SCH (10:33)
[2016-06-18] MEDS: DULoxetine HCL 30 MG CAPSULE.DR (FP) PO SCH (10:33)
[2016-06-18] MEDS: METHYL SALICYLATE/MENTHOL OINT 30 GM TUBE TP SCH ×2 (10:34→21:37)
[2016-06-18] MEDS: FLUTICASONE PROP 0.05% 16 GM NASAL SPRAY NS SCH (10:34)
[2016-06-18] MEDS: THIAMINE HCL 100 MG TABLET (FP) PO SCH (21:36)
[2016-06-18] MEDS: diphenhydrAMINE HCL 50 MG CAPSULE PO PRN (21:36)
[2016-06-18] MEDS: QUEtiapine FUMARATE 200 MG TABLET PO SCH (21:37)
[2016-06-19] MEDS: ACETAMINOPHEN 325 MG TABLET (FP) PO PRN (02:18)
[2016-06-19] MEDS: GABAPENTIN 400 MG CAPSULE (FP) PO SCH (06:01)
[2016-06-19 07:00] VITALS: BP 139/75; PULSE 91; TEMP 98.5
[2016-06-19] MEDS: FLUTICASONE PROP 0.05% 16 GM NASAL SPRAY NS SCH (09:56)
[2016-06-19] MEDS: ASPIRIN 81 MG CHEWABLE TABLETS PO SCH (09:57)
[2016-06-19] MEDS: NAPROXEN 500 MG TABLET (FP) PO SCH (09:57)
[2016-06-19] MEDS: METHYL SALICYLATE/MENTHOL OINT 30 GM TUBE TP SCH (09:57)
[2016-06-19] MEDS: DULoxetine HCL 30 MG CAPSULE.DR (FP) PO SCH (09:57)
[2016-06-19] MEDS: PRENATAL VITAMINS W/ FOLIC ACID TABLET (FP) PO SCH (09:57)
[2016-06-19] MEDS: LIDOCAINE 5% TOPICAL PATCH TP SCH (09:57)
== END 2016-06-19 10:10 | disposition home or self-care (01) | DRG 772 ==
LOC: YASAS 13:04 → Y3W 15:25
PROVIDERS: ADMIT Psychiatry & Neurology Psychiatry; ATTEND Psychiatry & Neurology Psychiatry
PROC: HZ42ZZZ Group Counseling for Substance Abuse Treatment, Cognitive-Behavioral (ICD-10-PCS; principal; 2016-05-31)
DX: F10.20 Alcohol dependence, uncomplicated (principal); F14.20 Cocaine dependence, uncomplicated; F43.10 Post-traumatic stress disorder, unspecified; F31.81 Bipolar II disorder; D64.9 Anemia, unspecified; J45.909 Unspecified asthma, uncomplicated; I10 Essential (primary) hypertension; M41.9 Scoliosis, unspecified; M54.5 Low back pain; G89.29 Other chronic pain; I25.2 Old myocardial infarction; F44.5 Conversion disorder with seizures or convulsions; R26.2 Difficulty in walking, not elsewhere classified; W07.XXXA Fall from chair, initial encounter; Y93.89 Activity, other specified; Y92.239 Unspecified place in hospital as the place of occurrence of the external cause
CPT/HCPCS: 36415; 81003; 87389; 93005; 93010

== ENCOUNTER 2017-02-06 13:36 | Inpatient (IN) | payer BC ==
[2017-02-06 14:59] VITALS: BMI 26.6
--- NOTE | 2017-02-06 17:31 | HP ---
Admission ROS S - [facility] Chief Complaint: I WANT TO GO TO REHAB Allergies/Adverse Reactions: Allergies Allergy/AdvReac Type Severity Reaction Status Date / Time risperidone [From Risperdal] Allergy Intermediate Verified 02/06/17 15:29 duloxetine HCl AdvReac Intermediate Verified 02/06/17 15:29 [From Cymbalta] History of Present Illness: 51 YEARS OLD FEMALE WITH LONG HISTORY OF ALCOHOL COCAINE DEPENDENCE HAS CHRONIC BACK PAIN, ASTHMA, HYPERTENSION ANEMIA AND DEPRESSION IS ADMITTED TO REHAB Exam Limitations: No Limitations - Ebola screening Have you traveled outside of the country in the last 21 days: No Have you had contact with anyone from an Ebola affected area: No Have you been sick,other than usual withdrawal symptoms: No Do you have a fever: No - Review of Systems Constitutional: Weight Stable EENT: reports: No Symptoms Reported Respiratory: reports: SOB with Exertion Cardiac: reports: No Symptoms Reported GI: reports: No Symptoms Reported : reports: No Symptoms Reported Musculoskeletal: reports: Back Pain (X 10 YEARS), Muscle Weakness (CANE BOTH LEGS) Integumentary: reports: No Symptoms Reported Neuro: reports: Seizure (X 5 YEARS, PSEUDO SEIZURE 05/2016) Endocrine: reports: No Symptoms Reported Hematology: reports: No Symptoms Reported Psychiatric: reports: Judgement Intact, Orientated x3, Anxious, Depressed Other Systems: Reviewed and Negative Patient History - Patient Medical History Hx Anemia: Yes Hx Asthma: Yes Hx Chronic Obstructive Pulmonary Disease (COPD): No Hx Cancer: No Hx Cardiac Disorders: No Hx Congestive Heart Failure: No Hx Hypertension: Yes (non complaiace) Hx Hypercholesterolemia: No Hx Pacemaker: No HX Cerebrovascular Accident: No Hx Seizures: Yes (psuedo seizures) Hx Dementia: No Hx Diabetes: No Hx Gastrointestinal Disorders: No Hx Liver Disease: No Hx Genitourinary Disorders: No Hx Sexually Transmitted Disorders: No Hx Renal Disease (ESRD): No Hx Thyroid Disease: No Hx Human Immunodeficiency Virus (HIV): No (last 04/11 negative) Hx Hepatitis C: No Hx Depression: Yes Hx Suicide Attempt: No Hx Bipolar Disorder: No Hx Schizophrenia: No - Patient Surgical History Past Surgical History: Yes Hx Neurologic Surgery: No Hx Cataract Extraction: No Hx Cardiac Surgery: No Hx Lung Surgery: No Hx Breast Surgery: No Hx Breast Biopsy: No Hx Abdominal Surgery: No Hx Appendectomy: No Hx Cholecystectomy: No Hx Genitourinary Surgery: No Hx Section: No Hx Orthopedic Surgery: Yes (fracture of left forearm in 2004) Hx Hysterectomy: No Anesthesia Reaction: No - PPD History Previous Implant?: Yes Documented Results: Negative w/proof Implanted On Prior [facility] Admission?: Yes Date: 05/18/16 Results: 0mm PPD to be Administered?: No - Reproductive History Patient is a Female of Child Bearing Age (11 -55 yrs old): Yes Last Menstrual Period: 02/07/12 Patient : No - Smoking Cessation Smoking history: Never smoked Have you smoked in the past 12 months: No Hx Chewing Tobacco Use: No Initiated information on smoking cessation: No - Substance & Tx. History Hx Alcohol Use: Yes Hx Substance Use: Yes Substance Use Type: Alcohol, Cocaine Hx Substance Use Treatment: Yes (05/31-06/19/16 [facility]) - Substances Abused Alcohol Route: Oral Frequency: 1-2 times per week Amount used: 1/2 PINT Age of first use: 26 Date of Last Use: 02/03/17 Cocaine Route: Smoking Frequency: 1-2 times per week Amount used: $10 Age of first use: 30 Date of Last Use: 02/01/17 Family Disease History - Family Disease History Family Disease History: Heart Disease: Father (), Other: Grandparent ( alcohol) Admission Physical Exam BHS - Vital Signs Vital Signs: Vital Signs - 24 hr 02/06/17 14:56 Temperature 98 F Pulse Rate 912 H Respiratory 20 Rate Blood Pressure 127/97 - Physical General Appearance: Yes: Within Normal Limits, No Apparent Distress, Nourished, Appropriately Dressed HEENTM: Yes: Hearing grossly Normal, Normal ENT Inspection, Normocephalic, Normal Voice Respiratory: Yes: Chest Non-Tender, Lungs Clear, Normal Breath Sounds, No Respiratory Distress, No Accessory Muscle Use Neck: Yes: Supple, Trachea in good position Cardiology: Yes: Regular Rhythm, S1, S2, Tachycardia Abdominal: Yes: Normal Bowel Sounds, Non Tender, Soft Genitourinary: Yes: Within Normal Limits Back: Yes: Normal Inspection, Decreased Range of Motion (LOWER LUMBAR SPINE WAIST BELT) Musculoskeletal: Yes: full range of Motion, Gait Steady, Back pain (5 YEARS) Extremities: Yes: Normal Inspection, Normal Range of Motion, Non-Tender Neurological: Yes: Fully Oriented, Alert, Motor Strength 5/5, Normal Response, Depressed Affect Integumentary: Yes: Warm Lymphatic: Yes: Within Normal Limits - Diagnostic (1) Alcohol dependence with uncomplicated withdrawal Current Visit: Yes Status: Acute (2) Asthma Current Visit: Yes Status: Chronic Qualifiers: Asthma severity: mild intermittent Asthma complication type: with status asthmaticus Qualified Code(s): J45.22 - Mild intermittent asthma with status asthmaticus (3) Bipolar II disorder Current Visit: Yes Status: Suspected (4) Essential hypertension Current Visit: Yes Status: Chronic (5) Cocaine dependence, uncomplicated Current Visit: Yes Status: Chronic (6) Chronic back pain Current Visit: Yes Status: Chronic Qualifiers: Back pain location: low back pain Sciatica laterality: bilateral sciatica (7) Use of cane as ambulatory aid Current Visit: Yes Status: Chronic Cleared for Admission [facility] - Detox or Rehab [facility] Level of Care: Observation Bed Detox Regimen/Protocol: Not Applicable Claeared for Rehab Admission: Yes [facility] Breath Alcohol Content Breath Alcohol Content: 0 Urine Pregancy Test - Result Urine Test Results: Negative- NO Line Present Urine Drug Screen - Results Drug Screen Negative: No Urine Drug Screen Results: EDITH-Cocaine, BZO-Benzodiazepines, TCA-Tricyclic Antidepress
[2017-02-06] MEDS ORDERED: MAG HYDROX/AL HYDROX/SIMETH 30 ML UNIT-DOSE CUP PO PRN (17:35)
[2017-02-06] MEDS ORDERED: guaiFENesin/D-METHORPHAN HB 10 ML UNIT-DOSE CUPS PO PRN (17:35)
[2017-02-06] MEDS ORDERED: LOPERAMIDE HCL 2 MG CAPSULE PO PRN (17:35)
[2017-02-06] MEDS ORDERED: P-EPHED 60MG/TRIPROLIDI 2.5MG TABLET PO PRN (17:35)
[2017-02-06] MEDS ORDERED: MENTHOL/PHENOL 1 EACH UD MM PRN (17:35)
[2017-02-06] MEDS ORDERED: MAGNESIUM CITRATE 300 ML BOTTLE PO PRN (17:35)
[2017-02-06] MEDS ORDERED: MAGNESIUM HYDROX 2400MG/30ML ORAL SUSPENSION 30 ML CUP PO PRN (17:35)
[2017-02-06] MEDS ORDERED: ALBUTEROL SO4 18 GM HFA INHALER IH PRN (17:36)
[2017-02-06] MEDS ORDERED: PT OWN MED DRAWER 7, Y5N ONE (21:11)
[2017-02-06] MEDS: NAPROXEN 500 MG TABLET (FP) PO SCH (21:39)
[2017-02-06] MEDS: METHYL SALICYLATE/MENTHOL OINT 30 GM TUBE TP SCH (21:39)
[2017-02-06] MEDS: THIAMINE HCL 100 MG TABLET (FP) PO SCH (21:39)
[2017-02-07 01:39] LABS: URINE APPEARANCE CLOUDY; URINE BILIRUBIN NEGATIVE (NEGATIVE); URINE BLOOD 3+ (NEGATIVE); URINE GLUCOSE (UA) NEGATIVE (NEGATIVE); URINE KETONE NEGATIVE (NEGATIVE); URINE LEUK ESTERASE NEGATIVE (NEGATIVE); URINE NITRITE NEGATIVE (NEGATIVE); URINE UROBILINOGEN NEGATIVE mg/dL (0.2-1.0)
[2017-02-07 01:46] LABS: URINE PROTEIN 1+ (NEGATIVE)
[2017-02-07 01:47] LABS: URINE COLOR YELLOW
[2017-02-07 01:54] LABS: URINE MUCUS FEW; URINE RBC 50 /hpf (0-3); URINE WBC 3 /hpf (3-5)
[2017-02-07] MEDS ORDERED: PT OWN MED DRAWER 7, Y5N ONE ×2 (08:38→21:38)
[2017-02-07 09:54] LABS: MCH 29.9 pg (25.7-33.7); MCHC 32.8 g/dl (32.0-36.0); MEAN CELL VOLUME 91.3 fl (80-96); MEAN PLT VOLUME 9.3 fl (7.5-11.1); PLATELET COUNT 253 K/MM3 (134-434); WHITE BLOOD COUNT 4.3 K/mm3 (4.0-10.0)
[2017-02-07 10:00] LABS: ALBUMIN 3.2 g/dl (3.4-5.0); ANION GAP 6 (8-16); CALCIUM 8.6 mg/dL (8.5-10.1); CO2 29 mmol/L (21-32); CREATININE 0.9 mg/dL (0.55-1.02); GLUCOSE,RANDOM 108 mg/dL (74-106); SGOT/AST 11 U/L (15-37)
[2017-02-07 10:03] LABS: ALK PHOS 93 U/L (45-117); BILIRUBIN,TOTAL 0.3 mg/dL (0.2-1.0); SGPT/ALT 12 U/L (12-78)
[2017-02-07] MEDS: NAPROXEN 500 MG TABLET (FP) PO SCH ×2 (10:19→21:36)
[2017-02-07] MEDS: PRENATAL VITAMINS W/ FOLIC ACID TABLET (FP) PO SCH (10:19)
[2017-02-07] MEDS: METHYL SALICYLATE/MENTHOL OINT 30 GM TUBE TP SCH ×2 (10:20→21:39)
[2017-02-07] MEDS: ASPIRIN 81 MG CHEWABLE TABLETS PO SCH (10:20)
--- NOTE | 2017-02-07 13:22 | EKG ---
Test Reason : Blood Pressure : / mmHG Vent. Rate : 082 BPM Atrial Rate : 082 BPM P-R Int : 152 ms QRS Dur : 078 ms QT Int : 388 ms P-R-T Axes : 053 011 027 degrees QTc Int : 453 ms NORMAL SINUS RHYTHM MINIMAL VOLTAGE CRITERIA FOR LVH, MAY BE NORMAL VARIANT BORDERLINE ECG WHEN COMPARED WITH ECG OF 31-MAY-2016 21:36, CRITERIA FOR ANTERIOR INFARCT ARE NO LONGER PRESENT ST ELEVATION HAS REPLACED ST DEPRESSION IN ANTERIOR LEADS T WAVE INVERSION NO LONGER EVIDENT IN ANTERIOR LEADS Confirmed by RODRIGUEZ DUNBAR MD ([id number]) on 02/07/2017 1:21:42 PM Referred By: Kiley Astorga Confirmed By:RODRIGUEZ DUNBAR MD
[2017-02-07] MEDS: hydrOXYzine PAMOATE 50 MG CAPSULE (FP) PO PRN ×2 (14:52→21:37)
[2017-02-07] MEDS: THIAMINE HCL 100 MG TABLET (FP) PO SCH (21:36)
[2017-02-07] MEDS ORDERED: NORTRIPTYLINE HCL 25 MG CAPSULE PO SCH (22:00)
[2017-02-07] MEDS ORDERED: QUEtiapine FUMARATE 200 MG TABLET PO SCH (22:00)
[2017-02-08] MEDS ORDERED: PT OWN MED DRAWER 7, Y5N ONE ×2 (09:07→20:08)
[2017-02-08] MEDS: PRENATAL VITAMINS W/ FOLIC ACID TABLET (FP) PO SCH (10:39)
[2017-02-08] MEDS: ASPIRIN 81 MG CHEWABLE TABLETS PO SCH (10:39)
[2017-02-08] MEDS: NAPROXEN 500 MG TABLET (FP) PO SCH ×2 (10:39→22:12)
[2017-02-08] MEDS: METHYL SALICYLATE/MENTHOL OINT 30 GM TUBE TP SCH ×2 (10:42→22:13)
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
[2017-02-08] MEDS ORDERED: SUVOREXANT 10 MG TABLET PO PRN (16:45)
[2017-02-08] MEDS: diphenhydrAMINE HCL 50 MG CAPSULE PO PRN (22:12)
[2017-02-08] MEDS: AMITRIPTYLINE HCL 25 MG TABLET (FP) PO SCH (22:12)
[2017-02-08] MEDS: THIAMINE HCL 100 MG TABLET (FP) PO SCH (22:12)
[2017-02-09] MEDS: hydrOXYzine PAMOATE 50 MG CAPSULE (FP) PO PRN (06:08)
[2017-02-09] MEDS: AMITRIPTYLINE HCL 25 MG TABLET (FP) PO SCH ×3 (07:04→21:31)
[2017-02-09] MEDS ORDERED: PT OWN MED DRAWER 7, Y5N ONE (09:27)
[2017-02-09] MEDS: ASPIRIN 81 MG CHEWABLE TABLETS PO SCH (10:17)
[2017-02-09] MEDS: PRENATAL VITAMINS W/ FOLIC ACID TABLET (FP) PO SCH (10:17)
[2017-02-09] MEDS: NAPROXEN 500 MG TABLET (FP) PO SCH ×2 (10:17→21:31)
[2017-02-09] MEDS: METHYL SALICYLATE/MENTHOL OINT 30 GM TUBE TP SCH ×2 (10:18→21:31)
[2017-02-09] MEDS: ACETAMINOPHEN 325 MG TABLET (FP) PO PRN (17:33)
[2017-02-09] MEDS: THIAMINE HCL 100 MG TABLET (FP) PO SCH (21:31)
[2017-02-10] MEDS: AMITRIPTYLINE HCL 25 MG TABLET (FP) PO SCH ×3 (06:42→21:49)
[2017-02-10] MEDS: hydrOXYzine PAMOATE 50 MG CAPSULE (FP) PO PRN (06:42)
[2017-02-10] MEDS ORDERED: CYCLOBENZAPRINE HCL 5 MG TABLET PO PRN (07:32)
[2017-02-10] MEDS: CYCLOBENZAPRINE HCL 10 MG TABLET (FP) PO PRN (08:22)
[2017-02-10] MEDS ORDERED: PT OWN MED DRAWER 7, Y5N ONE (08:56)
[2017-02-10] MEDS: METHYL SALICYLATE/MENTHOL OINT 30 GM TUBE TP SCH ×2 (10:04→21:51)
[2017-02-10] MEDS: PRENATAL VITAMINS W/ FOLIC ACID TABLET (FP) PO SCH (10:04)
[2017-02-10] MEDS: NAPROXEN 500 MG TABLET (FP) PO SCH ×2 (10:04→21:49)
[2017-02-10] MEDS: ASPIRIN 81 MG CHEWABLE TABLETS PO SCH (10:04)
[2017-02-10] MEDS: ACETAMINOPHEN 325 MG TABLET (FP) PO PRN (13:13)
[2017-02-10] MEDS: THIAMINE HCL 100 MG TABLET (FP) PO SCH (21:49)
[2017-02-10] MEDS: diphenhydrAMINE HCL 50 MG CAPSULE PO PRN ×2 (21:49→23:31)
[2017-02-11] MEDS: ACETAMINOPHEN 325 MG TABLET (FP) PO PRN (06:11)
[2017-02-11] MEDS: AMITRIPTYLINE HCL 25 MG TABLET (FP) PO SCH ×3 (06:12→21:53)
[2017-02-11] MEDS ORDERED: PT OWN MED DRAWER 7, Y5N ONE (07:33)
[2017-02-11] MEDS: ASPIRIN 81 MG CHEWABLE TABLETS PO SCH (10:14)
[2017-02-11] MEDS: PRENATAL VITAMINS W/ FOLIC ACID TABLET (FP) PO SCH (10:14)
[2017-02-11] MEDS: NAPROXEN 500 MG TABLET (FP) PO SCH ×2 (10:14→21:53)
[2017-02-11] MEDS: METHYL SALICYLATE/MENTHOL OINT 30 GM TUBE TP SCH ×2 (10:14→21:53)
[2017-02-11] MEDS: CYCLOBENZAPRINE HCL 10 MG TABLET (FP) PO PRN (10:15)
--- NOTE | 2017-02-11 12:08 | PN ---
[facility] Progress Note Note: Patient was transferred ti ER of [facility] after being evaluated by Digna Dotson due to seizure episode.
--- NOTE | 2017-02-11 14:09 | PN ---
[facility] Progress Note Note: Pt. had a witnessed seizure earlier,when I arrived on the unit,pt. was laying on the floor attended by nurses. She has hx. of seizure on gabapentin tid. Vital Signs - 8 hr 02/11/17 02/11/17 02/11/17 07:42 10:00 11:40 Temperature 98.0 F Pulse Rate 90 79 106 H Respiratory 18 18 18 Rate Blood Pressure 145/95 127/74 161/112 Laboratory Tests 02/06/17 02/07/17 02/07/17 23:22 07:50 07:50 WBC 4.3 RBC 3.69 Hgb 11.1 Hct 33.7 MCV 91.3 MCH 29.9 MCHC 32.8 RDW 14.0 Plt Count 253 MPV 9.3 Sodium 139 Potassium 4.1 Chloride 104 Carbon Dioxide 29 Anion Gap 6 L BUN 13 Creatinine 0.9 Creat Clearance w eGFR > 60 POC Glucometer Random Glucose 108 H D Calcium 8.6 Total Bilirubin 0.3 D AST 11 L D ALT 12 D Alkaline Phosphatase 93 Total Protein 7.0 Albumin 3.2 L Urine Color Yellow Urine Appearance Cloudy Urine pH 6.0 Ur Specific [place] 1.025 Urine Protein 1+ H Urine Glucose (UA) Negative Urine Ketones Negative Urine Blood 3+ H Urine Nitrite Negative Urine Bilirubin Negative Urine Urobilinogen Negative Urine RBC 50 Urine WBC 3 Ur Epithelial Cells Many Urine Mucus Few RPR Titer 02/07/17 02/11/17 07:50 11:48 WBC RBC Hgb Hct MCV MCH MCHC RDW Plt Count MPV Sodium Potassium Chloride Carbon Dioxide Anion Gap BUN Creatinine Creat Clearance w eGFR POC Glucometer 112 Random Glucose Calcium Total Bilirubin AST ALT Alkaline Phosphatase Total Protein Albumin Urine Color Urine Appearance Urine pH Ur Specific [place] Urine Protein Urine Glucose (UA) Urine Ketones Urine Blood Urine Nitrite Urine Bilirubin Urine Urobilinogen Urine RBC Urine WBC Ur Epithelial Cells Urine Mucus RPR Titer Nonreactive transfer to ED for evaluation Report given to Dr. De Los Santos
[2017-02-11] MEDS ORDERED: cloNIDine HCL 0.1 MG TABLET PO PRN (17:36)
--- NOTE | 2017-02-11 17:40 | PN ---
[facility] Progress Note Note: RECEIVED PATIENT RETURNED FROM ER, TREATED FOR SEIZURE WITH KEPPRA "I FEEL MUCH BETTER TODAY." PATIENT STATES THAT HAS PSEUDOSEIZURE X 4 YEARS TREATED WITH XANAX, NOT FEELING WELL X 2 DAYS. BEGIN KEPPRA CONTINUE REHAB
[2017-02-11] MEDS: THIAMINE HCL 100 MG TABLET (FP) PO SCH (21:53)
[2017-02-11] MEDS: levETIRAcetam 250 MG TABLET (FP) PO SCH (21:54)
[2017-02-11] MEDS: diphenhydrAMINE HCL 50 MG CAPSULE PO PRN (21:54)
[2017-02-12] MEDS ORDERED: PT OWN MED DRAWER 7, Y5N ONE (03:24)
[2017-02-12] MEDS: AMITRIPTYLINE HCL 25 MG TABLET (FP) PO SCH ×3 (06:46→21:28)
[2017-02-12] MEDS: levETIRAcetam 250 MG TABLET (FP) PO SCH ×2 (10:13→21:28)
[2017-02-12] MEDS: PRENATAL VITAMINS W/ FOLIC ACID TABLET (FP) PO SCH (10:13)
[2017-02-12] MEDS: ASPIRIN 81 MG CHEWABLE TABLETS PO SCH (10:13)
[2017-02-12] MEDS: METHYL SALICYLATE/MENTHOL OINT 30 GM TUBE TP SCH ×2 (10:13→21:28)
[2017-02-12] MEDS: NAPROXEN 500 MG TABLET (FP) PO SCH ×2 (10:14→21:28)
[2017-02-12] MEDS: CYCLOBENZAPRINE HCL 10 MG TABLET (FP) PO PRN ×2 (13:04→21:28)
[2017-02-12] MEDS: ACETAMINOPHEN 325 MG TABLET (FP) PO PRN (15:53)
[2017-02-12] MEDS: diphenhydrAMINE HCL 50 MG CAPSULE PO PRN (21:28)
[2017-02-12] MEDS: THIAMINE HCL 100 MG TABLET (FP) PO SCH (21:28)
[2017-02-13] MEDS: AMITRIPTYLINE HCL 25 MG TABLET (FP) PO SCH ×3 (06:23→21:41)
[2017-02-13] MEDS: ACETAMINOPHEN 325 MG TABLET (FP) PO PRN (06:24)
[2017-02-13] MEDS: levETIRAcetam 250 MG TABLET (FP) PO SCH ×2 (10:21→21:41)
[2017-02-13] MEDS: METHYL SALICYLATE/MENTHOL OINT 30 GM TUBE TP SCH ×2 (10:21→21:42)
[2017-02-13] MEDS: NAPROXEN 500 MG TABLET (FP) PO SCH ×2 (10:21→21:41)
[2017-02-13] MEDS: ASPIRIN 81 MG CHEWABLE TABLETS PO SCH (10:21)
[2017-02-13] MEDS: PRENATAL VITAMINS W/ FOLIC ACID TABLET (FP) PO SCH (10:21)
[2017-02-13] MEDS: diphenhydrAMINE HCL 50 MG CAPSULE PO PRN (21:41)
[2017-02-13] MEDS: THIAMINE HCL 100 MG TABLET (FP) PO SCH (21:41)
[2017-02-14] MEDS: diphenhydrAMINE HCL 50 MG CAPSULE PO PRN ×2 (00:47→21:49)
[2017-02-14] MEDS ORDERED: PT OWN MED DRAWER 7, Y5N ONE ×2 (03:25→08:52)
[2017-02-14] MEDS: AMITRIPTYLINE HCL 25 MG TABLET (FP) PO SCH ×3 (06:37→21:47)
[2017-02-14] MEDS: PRENATAL VITAMINS W/ FOLIC ACID TABLET (FP) PO SCH (10:19)
[2017-02-14] MEDS: ASPIRIN 81 MG CHEWABLE TABLETS PO SCH (10:19)
[2017-02-14] MEDS: levETIRAcetam 250 MG TABLET (FP) PO SCH ×2 (10:19→21:47)
[2017-02-14] MEDS: NAPROXEN 500 MG TABLET (FP) PO SCH ×2 (10:19→21:49)
[2017-02-14] MEDS: METHYL SALICYLATE/MENTHOL OINT 30 GM TUBE TP SCH ×2 (10:20→21:48)
[2017-02-14] MEDS: THIAMINE HCL 100 MG TABLET (FP) PO SCH (21:48)
[2017-02-15] MEDS: AMITRIPTYLINE HCL 25 MG TABLET (FP) PO SCH ×3 (06:57→21:49)
[2017-02-15] MEDS ORDERED: PT OWN MED DRAWER 7, Y5N ONE (08:47)
[2017-02-15] MEDS: PRENATAL VITAMINS W/ FOLIC ACID TABLET (FP) PO SCH (10:18)
[2017-02-15] MEDS: ASPIRIN 81 MG CHEWABLE TABLETS PO SCH (10:18)
[2017-02-15] MEDS: levETIRAcetam 250 MG TABLET (FP) PO SCH ×2 (10:18→21:49)
[2017-02-15] MEDS: METHYL SALICYLATE/MENTHOL OINT 30 GM TUBE TP SCH ×2 (10:18→21:48)
[2017-02-15] MEDS: NAPROXEN 500 MG TABLET (FP) PO SCH ×2 (10:18→21:49)
[2017-02-15] MEDS: THIAMINE HCL 100 MG TABLET (FP) PO SCH (21:49)
[2017-02-15] MEDS: diphenhydrAMINE HCL 50 MG CAPSULE PO PRN (21:49)
[2017-02-16] MEDS: AMITRIPTYLINE HCL 25 MG TABLET (FP) PO SCH ×3 (07:22→21:46)
[2017-02-16] MEDS: NAPROXEN 500 MG TABLET (FP) PO SCH ×2 (10:01→21:45)
[2017-02-16] MEDS: METHYL SALICYLATE/MENTHOL OINT 30 GM TUBE TP SCH ×2 (10:01→21:45)
[2017-02-16] MEDS: ASPIRIN 81 MG CHEWABLE TABLETS PO SCH (10:01)
[2017-02-16] MEDS: PRENATAL VITAMINS W/ FOLIC ACID TABLET (FP) PO SCH (10:01)
[2017-02-16] MEDS: levETIRAcetam 250 MG TABLET (FP) PO SCH ×2 (10:02→21:45)
[2017-02-16] MEDS ORDERED: PT OWN MED DRAWER 7, Y5N ONE (19:44)
[2017-02-16] MEDS: THIAMINE HCL 100 MG TABLET (FP) PO SCH (21:46)
[2017-02-16] MEDS: diphenhydrAMINE HCL 50 MG CAPSULE PO PRN (21:46)
[2017-02-17] MEDS: AMITRIPTYLINE HCL 25 MG TABLET (FP) PO SCH ×3 (06:33→21:56)
[2017-02-17] MEDS: ASPIRIN 81 MG CHEWABLE TABLETS PO SCH (09:05)
[2017-02-17] MEDS: NAPROXEN 500 MG TABLET (FP) PO SCH ×2 (09:05→21:56)
[2017-02-17] MEDS: levETIRAcetam 250 MG TABLET (FP) PO SCH ×2 (09:05→21:56)
[2017-02-17] MEDS: PRENATAL VITAMINS W/ FOLIC ACID TABLET (FP) PO SCH (09:05)
[2017-02-17] MEDS: METHYL SALICYLATE/MENTHOL OINT 30 GM TUBE TP SCH ×2 (09:06→21:55)
[2017-02-17] MEDS ORDERED: PT OWN MED DRAWER 7, Y5N ONE (19:40)
[2017-02-17] MEDS: diphenhydrAMINE HCL 50 MG CAPSULE PO PRN (21:56)
[2017-02-17] MEDS: THIAMINE HCL 100 MG TABLET (FP) PO SCH (21:56)
[2017-02-18] MEDS: AMITRIPTYLINE HCL 25 MG TABLET (FP) PO SCH (06:05)
[2017-02-18 07:03] VITALS: TEMP 98.2
--- NOTE | 2017-02-18 09:34 | PN ---
Psychiatric Progress Note Vital Signs: Vital Signs Period Temp Pulse Resp BP Sys/Galarza Pulse Ox Last 24 Hr 98.2 F-98.2 F 84-87 16-18 128-157/87-97 Date of Session: 02/18/17 Chief Complaint:: Discharge visit HPI: Patient addressed Alcohol,Cocaine dependence comorbid with Substance induced mood disorder,PTSD. ROS: Multiple medical problems. Current Medications: Active Medications Generic Name Dose Route Start Last Admin Trade Name Freq PRN Reason Stop Dose Admin Acetaminophen 650 mg 02/06/17 17:35 02/13/17 06:24 Tylenol - PO 650 mg Q4H PRN Administration PAIN Al Hydroxide/Mg Hydroxide 30 ml 02/06/17 17:35 Mylanta Oral Suspension - PO Q6H PRN DYSPEPSIA Albuterol Sulfate 2 puff 02/06/17 17:36 Ventolin Hfa Inhaler - IH Q4H PRN SHORT OF BREATH/WHEEZING Amitriptyline HCl 25 mg 02/08/17 22:00 02/18/17 06:05 Elavil - PO 25 mg TID LOUISE Administration Aspirin 81 mg 02/07/17 10:00 02/17/17 09:05 Asa - PO 81 mg DAILY LOUISE Administration Clonidine 0.1 mg 02/11/17 17:36 Catapres - PO Q6H PRN HYPERTENSION Cyclobenzaprine HCl 10 mg 02/10/17 07:52 02/12/17 21:28 Flexeril - PO 10 mg DAILY PRN Administration PAIN Diphenhydramine HCl 50 mg 02/06/17 17:35 02/17/17 21:56 Benadryl - PO 50 mg HSMR1 PRN Administration INSOMNIA Eucalyptus/Menthol/Phenol/Sorbitol 1 each 02/06/17 17:35 Cepastat Lozenge - MM Q4H PRN SORE THROAT Guaifenesin 10 ml 02/06/17 17:35 Robitussin Dm - PO Q6H PRN COUGH Hydroxyzine Pamoate 50 mg 02/06/17 17:35 02/10/17 06:42 Vistaril - PO 50 mg Q4H PRN Administration AGITATION Levetiracetam 250 mg 02/11/17 22:00 02/17/17 21:56 Keppra - PO 250 mg BID LOUISE Administration Loperamide HCl 4 mg 02/06/17 17:35 Imodium - PO Q6H PRN DIARRHEA Magnesium Citrate 300 ml 02/06/17 17:35 Citroma - PO Q48H PRN CONSTIPATION Magnesium Hydroxide 30 ml 02/06/17 17:35 Milk Of Magnesia - PO DAILY PRN CONSTIPATION Methyl Salicylate 1 applic 02/06/17 22:00 02/17/17 21:55 Antonio-Epstein - TP Not Given BID LOUISE Naproxen 500 mg 02/06/17 22:00 02/17/17 21:56 Naprosyn - PO 500 mg BID LOUISE Administration Multivit/Folic Acid/Iron 1 tab 02/07/17 10:00 02/17/17 09:05 Vitamins (Sjr) - PO 1 tab DAILY LOUISE Administration Pseudoephedrine/Triprolidine 1 combo 02/06/17 17:35 Actifed - PO TID PRN NASAL CONGESTION Thiamine HCl 100 mg 02/06/17 22:00 02/17/17 21:56 Vitamin B1 - PO 100 mg HS LOUISE Administration Current Side Effect: No Lab tests ordered: No Lab tests reviewed: Yes Provider note:: Patient completed this program today .She has met her treatment goals and will continue to address her issues on outpatient basis at [facility] [place] [facility] at [facility].Patient reports finding that Elavil 25 mg po tid helps to cope with Mood instability,anxiety,depression.scriot for 30 days supply provided. Supportive therapy privided focusing on relapse prevention,coping skills,support utilization utlization to maintain recovery. Patient is stable for discharge today. Total face to face time:: 30 Mental Status Exam - Mental Status Exam Alert and Oriented to: Time, Place, Person Cognitive Function: Grossly Intact Patient Appearance: Well Groomed Mood: Euthymic Affect: Mood Congruent Patient Behavior: Cooperative Speech Pattern: Clear Voice Loudness: Normal Thought Process: Goal Oriented Thought Disorder: Not Present Hallucinations: Denies Suicidal Ideation: Denies Homicidal Ideation: Denies Insight/Judgement: Fair Sleep: Fair Appetite: Good Muscle strength/Tone: Normal Gait/Station: Normal Psychiatric Treatment Plan - Problem List (1) Asthma Qualifiers: Asthma severity: mild intermittent Asthma complication type: with status asthmaticus Qualified Code(s): J45.22 - Mild intermittent asthma with status asthmaticus (2) Chronic back pain Qualifiers: Back pain location: low back pain Sciatica laterality: bilateral sciatica
[2017-02-18] MEDS: ASPIRIN 81 MG CHEWABLE TABLETS PO SCH (09:37)
[2017-02-18] MEDS: PRENATAL VITAMINS W/ FOLIC ACID TABLET (FP) PO SCH (09:38)
[2017-02-18] MEDS: levETIRAcetam 250 MG TABLET (FP) PO SCH (09:38)
[2017-02-18] MEDS: NAPROXEN 500 MG TABLET (FP) PO SCH (09:38)
[2017-02-18] MEDS ORDERED: PT OWN MED DRAWER 7, Y5N ONE (09:40)
[2017-02-18 09:48] VITALS: BP 115/75; PULSE 103
[2017-02-18] MEDS: METHYL SALICYLATE/MENTHOL OINT 30 GM TUBE TP SCH (10:49)
== END 2017-02-18 10:00 | disposition home or self-care (01) | DRG 772 ==
LOC: YASAS 13:36 → Y3E 18:33
PROVIDERS: ADMIT Psychiatry & Neurology Psychiatry; ATTEND Psychiatry & Neurology Psychiatry
PROC: HZ42ZZZ Group Counseling for Substance Abuse Treatment, Cognitive-Behavioral (ICD-10-PCS; principal; 2017-02-06)
DX: F10.20 Alcohol dependence, uncomplicated (principal); F14.20 Cocaine dependence, uncomplicated; F43.10 Post-traumatic stress disorder, unspecified; F31.81 Bipolar II disorder; R00.0 Tachycardia, unspecified; J45.22 Mild intermittent asthma with status asthmaticus; M54.5 Low back pain; G89.29 Other chronic pain; I10 Essential (primary) hypertension; D64.9 Anemia, unspecified; I25.2 Old myocardial infarction; M41.9 Scoliosis, unspecified; G40.909 Epilepsy, unspecified, not intractable, without status epilepticus; R26.2 Difficulty in walking, not elsewhere classified; Z99.89 Dependence on other enabling machines and devices; Z88.8 Allergy status to other drugs, medicaments and biological substances; Z91.14 Patient's other noncompliance with medication regimen
CPT/HCPCS: 36415; 80053; 81003; 81015; 85027; 86593; 93005; 93010

== ENCOUNTER 2017-02-11 12:23 | Emergency (ER) | payer BC ==
[2017-02-11 12:33] VITALS: BMI 27.4
--- NOTE | 2017-02-11 12:33 | PDOC ---
History of Present Illness - General Chief Complaint: Seizure Stated Complaint: SEIZURE Time Seen by Provider: 02/11/17 12:31 - History of Present Illness Initial Comments: 51 year old female with PMH of EtOH dependence, chronic back pain,asthma, HTN, anemia, anxiety, and seizure disorder (supposedly related to her anxiety so assumed pseudo seizure) presenting with a fall to the floor without head trauma or any other bony trauma but admits to an episode of witnessed uncontrollable shaking. However, she did not have bowel/ bladder incontinence, tongue bites, or limb damage. Denies any other symptoms with the exception ofher crhonic back pain from her scoliosis. 02/11/17 13:39 Past History - Past Medical History Allergies/Adverse Reactions: Allergies Allergy/AdvReac Type Severity Reaction Status Date / Time risperidone [From Risperdal] Allergy Intermediate Verified 02/06/17 15:29 duloxetine HCl AdvReac Intermediate Verified 02/06/17 15:29 [From Cymbalta] Home Medications: Ambulatory Orders Meloxicam [Mobic] 7.5 mg PO DAILY 05/16/16 Albuterol Sulfate Inhaler - [Ventolin HFA Inhaler -] 2 puff IH Q4H PRN #1 inhaler 06/18/16 Aspirin [ASA -] 81 mg PO DAILY #30 tab.chew 06/18/16 Diltiazem Cd [Cardizem Cd -] 120 mg PO DAILY #60 cap.cd.24h 06/18/16 Ferrous Sulfate [Feosol] 325 mg PO TID #90 tablet 06/18/16 Quetiapine Fumarate [Seroquel -] 200 mg PO HS #30 tablet 06/18/16 Acetaminophen [Tylenol] 650 mg PO Q6H PRN 02/06/17 Nortriptyline HCl [Pamelor -] 25 mg PO HS 02/06/17 Levetiracetam [Keppra -] 250 mg PO BID #60 tablet 02/11/17 Anemia: Yes Asthma: Yes (MDI) Cancer: No Cardiac Disorders: Yes (PALPITATION) CVA: No COPD: No CHF: No Dementia: No Diabetes: No GI Disorders: No Disorders: No HTN: No Hypercholesterolemia: No Kidney Stones: No Liver Disease: No Seizures: No Thyroid Disease: No - Surgical History Abdominal Surgery: No Appendectomy: No Cardiac Surgery: No Cholecystectomy: No Lung Surgery: No Neurologic Surgery: No Orthopedic Surgery: Yes (fracture of left forearm in 2005) - Reproductive History PID: No - Suicide/Smoking/Psychosocial Hx Smoking History: Never smoked Have you smoked in the past 12 months: No Hx Alcohol Use: Yes Drug/Substance Use Hx: Yes Substance Use Type: Alcohol, Cocaine Hx Substance Use Treatment: Yes Review of Systems - Review of Systems Constitutional: No: Chills, Diaphoresis, Fever HEENTM: No: Blurred Vision, Double Vision Respiratory: No: Cough, Shortness of Breath Cardiac (ROS): No: Chest Pain, Edema, Irregular Heart Rate ABD/GI: No: Constipated, Diarrhea, Nausea, Vomiting *Physical Exam - Physical Exam General Appearance: Yes: Nourished, Appropriately Dressed. No: Apparent Distress HEENT: positive: EOMI, JEAN-PAUL, Normal ENT Inspection, Normal Voice, Symmetrical Neck: positive: Trachea midline, Normal Thyroid, Supple. negative: Tender, Rigid Respiratory/Chest: positive: Lungs Clear, Normal Breath Sounds, Respiratory Distress. negative: Chest Tender Cardiovascular: positive: Regular Rhythm, Regular Rate, S1, S2. negative: Edema , JVD, Murmur Gastrointestinal/Abdominal: positive: Normal Bowel Sounds, Flat. 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 No focal neuolgical deficits.) ED Treatment Course - LABORATORY CBC & Chemistry Diagram: 02/11/17 12:54 02/11/17 12:54 Medical Decision Making - Medical Decision Making 51 year old female with history of seizure vs. pseudo seizure presenting with a repeat episode of the same. CK negative and all labs WNL so this was most likely another pseudo-seizure. We did Keppra load her x 1 G and sent back to her facility, after speaking with Dr. John Joy, with a prescription of 250 keppra BID. 02/11/17 15:52 *DC/Admit/Observation/Transfer Diagnosis at time of Disposition: Pseudoseizures - Discharge Dispostion Disposition: [facility] FACILITY Admit: No - Prescriptions Prescriptions: Levetiracetam [Keppra -] 250 mg PO BID #60 tablet - Patient Instructions Printed Discharge Instructions: Psychogenic Nonepileptic Seizures Additional Instructions: You were seen for what you beleived was seizure like activity
--- NOTE | 2017-02-11 12:36 | PDOC ---
Attending Attestation - Resident Resident Name: Taras Min - ED Attending Attestation I have performed the following: I have examined & evaluated the patient, The case was reviewed & discussed with the resident, I agree w/resident's findings & plan, Exceptions are as noted - HPI HPI: 02/11/17 12:34 WItnessed Seizure at [facility] (inpatient detox) - Physicial Exam PE: 02/11/17 12:34 No Longer Post Ictal/ No Deficits Anxiety Induced Seizures, not taking her benzodiazepine at inpatient detox - Medical Decision Making 02/11/17 12:[address] Taras Min's assessment and plan
[2017-02-11 13:43] LABS: BASOPHIL 0.7 % (0-2.0); EOSINOPHIL 2.5 % (0-4.5); MCH 29.8 pg (25.7-33.7); MCHC 32.7 g/dl (32.0-36.0); MEAN CELL VOLUME 91.1 fl (80-96); MEAN PLT VOLUME 8.6 fl (7.5-11.1); PLATELET COUNT 297 K/MM3 (134-434); RDW 14.1 % (11.6-15.6); WHITE BLOOD COUNT 5.9 K/mm3 (4.0-10.0)
[2017-02-11] MEDS ORDERED: levETIRAcetam 500 MG TABLET (FP) PO ONE ×2 (13:44→15:12)
[2017-02-11 13:59] LABS: ALBUMIN 3.9 g/dl (3.4-5.0); ANION GAP 9 (8-16); BILIRUBIN,TOTAL 0.3 mg/dL (0.2-1.0); CO2 29 mmol/L (21-32); CREATININE 0.9 mg/dL (0.55-1.02); GLUCOSE,RANDOM 91 mg/dL (74-106); MAGNESIUM 2.3 mg/dL (1.8-2.4); PHOSPHOROUS 3.6 mg/dL (2.5-4.9); SGOT/AST 17 U/L (15-37); SGPT/ALT 12 U/L (12-78)
[2017-02-11 14:03] LABS: ALK PHOS 87 U/L (45-117)
[2017-02-11 16:19] LABS: CPK 98 IU/L (26-192)
[2017-02-11 17:11] VITALS: BP 133/78; PULSE 80; TEMP 98.6
== END 2017-02-11 17:09 | disposition other institution (70) ==
LOC: JER 12:23
DX: G40.909 Epilepsy, unspecified, not intractable, without status epilepticus (principal); I10 Essential (primary) hypertension; G89.29 Other chronic pain; F10.20 Alcohol dependence, uncomplicated; F41.9 Anxiety disorder, unspecified; W19.XXXA Unspecified fall, initial encounter; Y93.89 Activity, other specified; Y92.238 Other place in hospital as the place of occurrence of the external cause
CPT/HCPCS: 36415; 70450-TC; 80053; 82553; 83735; 84100; 85025; 99284-25